=== PATIENT | female | born 2000 | race Caucasian/White ===

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

== ENCOUNTER 2022-07-21 18:29 | Emergency (ER) | payer MEDICAID ==
[~2022-07-21] VITALS: Ht 157.5 cm; Wt 71.8 kg
[~2022-07-21 18:29] MED LIST changes: -FAMO40TA73 PO; -ONDA4TAB12 PO; -PHEN-716 PO; +TRAZ-251 PO; +VENL75TA90 PO
[2022-07-21 21:31] LABS: BASOPHILS # (AUTO) 0.1 X10'3 (0-0.2); BASOPHILS % (AUTO) 0.7 % (0-1); EOSINOPHILS % (AUTO) 0.5 % (0-6); HEMATOCRIT 39.5 % (35.0-45.0); HEMOGLOBIN 13.2 g/dl (12.0-16.0); LYMPHOCYTES # (AUTO) 2.4 X10'3 (1.1-4.8); LYMPHOCYTES % (AUTO) 29.2 % (21-51); MEAN CORPUSCULAR HEMOGLOBIN 26.7 PG (27.0-31.0); MEAN CORPUSCULAR HGB CONC 33.3 g/dL (33.0-36.5); MONOCYTES # (AUTO) 0.5 X10'3 (0-0.9); MONOCYTES % (AUTO) 6.3 % (2-12); NEUTROPHILS # (AUTO) 5.3 X10'3 (1.8-7.7); NEUTROPHILS % (AUTO) 63.3 % (42-75); PLATELET COUNT 349 X10'3 (140-440); RED BLOOD COUNT 4.93 X10'6 (4.20-5.60); RED CELL DISTRIBUTION WIDTH 15.5 % (11.5-14.5); WHITE BLOOD COUNT 8.3 X10'3 (4.5-11.0)
[2022-07-21 21:42] LABS: ALANINE AMINOTRANSFERASE 34 U/L (12-78); ALBUMIN 4.1 G/DL (3.4-5.0); ALKALINE PHOSPHATASE 86 IU/L (20-180); ANION GAP 10 (8-16); ASPARTATE AMINO TRANSFERASE 28 U/L (10-37); BILIRUBIN,TOTAL 0.2 MG/DL (0.1-1.0); BLOOD UREA NITROGEN 9 MG/DL (7-18); BUN/CREATININE RATIO 12.7 (6.6-38.0); CALCIUM 9.2 MG/DL (8.5-10.1); CHLORIDE 104 MMOL/L (99-107); CREATININE 0.71 MG/DL (0.40-0.90); GLUCOSE 83 MG/DL (70-104); POTASSIUM 3.7 MMOL/L (3.5-5.1); SODIUM 139 MMOL/L (135-145); TOTAL PROTEIN 8.2 G/DL (6.4-8.2); eGFR > 90 ML/MIN
[2022-07-21 21:55] LABS: ACETAMINOPHEN < 2.0 UG/ML (10-30); ETHANOL < 0.010 GM/DL (0.0-0.010)
--- NOTE | 2022-07-21 22:00 | NUR ---
POISON CONTROLWAS CALLED BY THIS RECORDER . LABS WERE DRAWN ADVISED BY CONTROL AND VALUES WERE REPORTED . POISON CONTROL ADVISES TO REPEAT LAB DRAW AT 2300 CHEM PANEL , ACETAMENTSANDRA , AND S
[2022-07-21 22:01] LABS: URINE HCG NEGATIVE (NEG)
[2022-07-21 22:18] LABS: URINE AMPHETAMINE SCREEN NEGATIVE (Neg); URINE BARBITUATE SCREEN NEGATIVE (Neg); URINE BENZODIAZEPINES SCREEN NEGATIVE (Neg); URINE CANNABINOID SCREEN NEGATIVE (Neg); URINE COCAINE SCREEN NEGATIVE (Neg); URINE METHADONE SCREEN NEGATIVE (Neg); URINE OPIATE SCREEN NEGATIVE (Neg); URINE PHENCYCLIDINE SCREEN NEGATIVE (Neg)
--- NOTE | 2022-07-21 22:25 | NUR ---
LABS RECCOMENDED BY POISON CONTROL TO REPEAT AT 2300 - SALICYLATES CHEM PANEL AND ACETAMINOPHEN .
[2022-07-21 23:36] LABS: ALANINE AMINOTRANSFERASE 36 U/L (12-78); ALBUMIN 4.2 G/DL (3.4-5.0); ALBUMIN/GLOBULIN RATIO 1.1 (1.1-1.5); ALKALINE PHOSPHATASE 90 IU/L (20-180); ANION GAP 9 (8-16); ASPARTATE AMINO TRANSFERASE 31 U/L (10-37); BILIRUBIN,TOTAL 0.2 MG/DL (0.1-1.0); BLOOD UREA NITROGEN 8 MG/DL (7-18); BUN/CREATININE RATIO 10.5 (6.6-38.0); CALCIUM 8.8 MG/DL (8.5-10.1); CHLORIDE 102 MMOL/L (99-107); CREATININE 0.76 MG/DL (0.40-0.90); GLUCOSE 96 MG/DL (70-104); SODIUM 137 MMOL/L (135-145); TOTAL CARBON DIOXIDE 26.5 MMOL/L (24-32); TOTAL PROTEIN 8.1 G/DL (6.4-8.2); eGFR > 90 ML/MIN
[2022-07-21 23:38] LABS: POTASSIUM 3.7 MMOL/L (3.5-5.1)
[2022-07-21 23:46] LABS: ACETAMINOPHEN < 2.0 UG/ML (10-30)
[2022-07-22 05:53] VITALS: BP 115/65
--- NOTE | 2022-07-22 06:15 | NUR ---
Pt moved from ER main pepe bed 12 to ER overflow bed 21.
[2022-07-22] MEDS ORDERED: QUET-1 PO (07:31)
[2022-07-22] MEDS ORDERED: CITA-311 PO (07:31)
[2022-07-22 08:17] LABS: CLARITY,URINE CLEAR (Clear); COLOR,URINE YELLOW (Yellow); GLUCOSE, URINE NEGATIVE (Neg); KETONES,URINE NEGATIVE (Neg); LEUKOCYTE ESTERASE ,URINE NEGATIVE (Neg); NITRITES, URINE NEGATIVE (Neg); OCCULT BLOOD,URINE NEGATIVE (Neg); PH,URINE 8.5 (4.8-8.0); PROTEIN,URINE NEGATIVE (Neg); UROBILINOGEN,URINE 0.2 E.U/dL (0.2-1.0)
[2022-07-22 08:20] LABS: UA COLLECTION TYPE CLN CATCH MIDSTREAM
[2022-07-22] MEDS ORDERED: CITALOpram 10mg tablet PO SCH (08:26)
--- NOTE | 2022-07-22 09:15 | NUR ---
Pt is eating breakfast. Pt continues to endorse depression and SI, pt has no plan, pt contracts for safety. Pt denies HI/AH/VH.
--- NOTE | 2022-07-22 09:22 | NUR ---
Packet faxed earlier. Pt is being evaluated by Demetris from [facility].
--- NOTE | 2022-07-22 10:10 | NUR ---
Pt approached this nurse to ask for something for her stomach. Pt reports "really bad" stomach pain and states that "it feels like it's going to come out both ends." Addendum: 07/22/22 at 1024 by CEDRIC Pt reports one episode of diarrhea.
[2022-07-22] MEDS ORDERED: dicyclomine 10 MG capsule PO ONE (10:30)
[2022-07-22] MEDS ORDERED: ondansetron 4mg rapidly disintigrating tab PO ONE (10:30)
--- NOTE | 2022-07-22 10:40 | NUR ---
Obtained orders for Bentyl 20 mg once and Zofran ODT 8 mg once.
--- NOTE | 2022-07-22 10:41 | NUR ---
Valeriy Mata at 1041.
--- NOTE | 2022-07-22 11:46 | NUR ---
Pt reported to this RN that she no longer wishes to go to a [facility] hospital. Notified Demetris from [facility] and he is speaking to the patient.
--- NOTE | 2022-07-22 12:18 | NUR ---
Pavan Sol called to inquire about the patient.
--- NOTE | 2022-07-22 13:10 | NUR ---
Pt is on the phone with her grandma.
--- NOTE | 2022-07-22 13:13 | NUR ---
Claudette from [facility] called to report that pt has been accepted at [facility], pickler helper time will be 1415.
--- NOTE | 2022-07-22 13:59 | NUR ---
Pt is reading a book.
--- NOTE | 2022-07-22 14:23 | NUR ---
Pt discharged to [facility], [place], ambulated off the unit accompanied by security and county warehouse delivery driver, pocket knives will be retrieved from security safe on the way out.
[2022-07-22] MEDS ORDERED: quetiapine 100mg tablet PO SCH (20:00)
[2022-07-22] MEDS ORDERED: traZODone 50mg tablet PO SCH (21:00)
== END 2022-07-22 14:23 ==
LOC: ER 18:31
DX: R45.851 Suicidal ideations (principal); Z20.822 Contact with and (suspected) exposure to COVID-19; F41.9 Anxiety disorder, unspecified; F20.9 Schizophrenia, unspecified; Z91.010 Allergy to peanuts; Z79.899 Other long term (current) drug therapy
CPT/HCPCS: 36415; 80053; 80305; 80320; 80329; 81003; 81025; 84443; 85025; 87811; 99285

== ENCOUNTER 2022-09-30 15:57 | Emergency (ER) | payer MEDICAID ==
[~2022-09-30] VITALS: Ht 157.5 cm; Wt 68.0 kg
[~2022-09-30 15:57] MED LIST changes: +CITA-311 PO; +QUET-1 PO; -VENL75TA90 PO
[2022-09-30 16:00] VITALS: BP 160/94
[2022-09-30] MEDS ORDERED: QUET-1 PO (17:10)
== END 2022-09-30 17:22 | disposition home or self-care (01) ==
LOC: ER 15:58
DX: F31.9 Bipolar disorder, unspecified (principal); Z76.0 Encounter for issue of repeat prescription; F20.9 Schizophrenia, unspecified; Z91.018 Allergy to other foods; Z79.899 Other long term (current) drug therapy; Z91.010 Allergy to peanuts
CPT/HCPCS: 99281

== ENCOUNTER 2022-10-28 14:58 | Emergency (ER) | payer MEDICAID ==
[~2022-10-28] VITALS: Ht 157.5 cm; Wt 68.2 kg
--- NOTE | 2022-10-28 15:05 | NUR ---
CALL TO POISON CONTROL AT THIS TIME. PER PHARMACIST LOOK FOR DROWSYNESS, DIZZINESS, HYPOTENSION, QTC PROLONGATION AND SZ. OBSERVATION FOR 4-6 HRS FROM TIME OF ARRIVAL. EKG NOW AND REPEAT IN 4HRS, IF QTC >500 THEN GIVE 2G MAGNESIUM IV, MAXIMIZE CA, K, MG. GIVE BENZODIAZEPINE FOR AGITATION/SZ, CHECK ALCOHOL, TYLENOL, ASPIRIN, CMP, HCG, UDS.
[2022-10-28 16:10] LABS: BASOPHILS % (AUTO) 0.3 % (0-1); EOSINOPHILS % (AUTO) 0.3 % (0-6); HEMATOCRIT 45.3 % (35.0-45.0); HEMOGLOBIN 14.5 g/dl (12.0-16.0); LYMPHOCYTES # (AUTO) 1.7 X10'3 (1.1-4.8); LYMPHOCYTES % (AUTO) 21.7 % (21-51); MEAN CORPUSCULAR HEMOGLOBIN 26.1 PG (27.0-31.0); MEAN CORPUSCULAR HGB CONC 31.9 g/dL (33.0-36.5); MEAN CORPUSCULAR VOLUME 81.6 FL (78-98); MEAN PLATELET VOLUME 7.5 FL (7.4-10.4); MONOCYTES # (AUTO) 0.6 X10'3 (0-0.9); MONOCYTES % (AUTO) 7.8 % (2-12); NEUTROPHILS # (AUTO) 5.5 X10'3 (1.8-7.7); NEUTROPHILS % (AUTO) 69.9 % (42-75); PLATELET COUNT 292 X10'3 (140-440); RED BLOOD COUNT 5.55 X10'6 (4.20-5.60); WHITE BLOOD COUNT 7.8 X10'3 (4.5-11.0)
[2022-10-28 16:22] LABS: ALANINE AMINOTRANSFERASE 20 U/L (12-78); ALBUMIN 4.6 G/DL (3.4-5.0); ALBUMIN/GLOBULIN RATIO 1.1 (1.1-1.5); ALKALINE PHOSPHATASE 89 IU/L (20-180); ANION GAP 11 (8-16); ASPARTATE AMINO TRANSFERASE 21 U/L (10-37); BILIRUBIN,TOTAL 0.3 MG/DL (0.1-1.0); BLOOD UREA NITROGEN 8 MG/DL (7-18); BUN/CREATININE RATIO 11.1 (6.6-38.0); CALCIUM 9.9 MG/DL (8.5-10.1); CHLORIDE 100 MMOL/L (99-107); CREATININE 0.72 MG/DL (0.40-0.90); GLUCOSE 98 MG/DL (70-104); SODIUM 135 MMOL/L (135-145); TOTAL CARBON DIOXIDE 23.7 MMOL/L (24-32); TOTAL PROTEIN 8.7 G/DL (6.4-8.2); eGFR > 90 ML/MIN
[2022-10-28 16:33] LABS: ETHANOL < 0.010 GM/DL (0.0-0.010)
[2022-10-28 16:52] LABS: POTASSIUM 3.9 MMOL/L (3.5-5.1)
[2022-10-28 16:53] LABS: ACETAMINOPHEN < 2.0 UG/ML (10-30)
[2022-10-28] MEDS ORDERED: normal saline 1000ml 1,000 ML IV ONE ×2 (17:30→21:15)
[2022-10-28] MEDS ORDERED: ondansetron/PF 4mg/2ml inj IV ONE (17:31)
[2022-10-28 19:05] LABS: CLARITY,URINE SLIGHTLY CLOUDY (Clear); COLOR,URINE YELLOW (Yellow); GLUCOSE, URINE NEGATIVE (Neg); KETONES,URINE TRACE mg/dl (Neg); LEUKOCYTE ESTERASE ,URINE NEGATIVE (Neg); NITRITES, URINE NEGATIVE (Neg); OCCULT BLOOD,URINE NEGATIVE (Neg); PH,URINE 8.5 (4.8-8.0); PROTEIN,URINE NEGATIVE (Neg); UROBILINOGEN,URINE 0.2 E.U/dL (0.2-1.0)
[2022-10-28 19:07] LABS: URINE HCG NEGATIVE (NEG)
[2022-10-28 19:15] LABS: URINE AMPHETAMINE SCREEN NEGATIVE (Neg); URINE BARBITUATE SCREEN NEGATIVE (Neg); URINE BENZODIAZEPINES SCREEN NEGATIVE (Neg); URINE CANNABINOID SCREEN POSITIVE (Neg); URINE COCAINE SCREEN NEGATIVE (Neg); URINE METHADONE SCREEN NEGATIVE (Neg); URINE OPIATE SCREEN NEGATIVE (Neg); URINE PHENCYCLIDINE SCREEN NEGATIVE (Neg)
[2022-10-28 19:16] LABS: UA COLLECTION TYPE CLN CATCH MIDSTREAM
[2022-10-28 19:17] LABS: MUCUS STRANDS FEW /LPF (Neg); SQUAMOUS EPITHELIAL CELL,UR MANY /LPF (FEW)
[2022-10-28 19:18] LABS: BACTERIA,URINE 1+ /HPF (Neg); TRANSITIONAL EPI CELLS,URINE FEW /HPF
--- NOTE | 2022-10-28 20:49 | NUR ---
per Poison control recomendations, new EKG obtained at this time and QTc is 471- still WNL. is aware.
[2022-10-29 03:46] VITALS: BP 116/52
--- NOTE | 2022-10-29 06:50 | NUR ---
ASSUMED PT CARE. PT RESTING, EYES CLOSED, BED LOCKED AND LOW, IN LINE OF SIGHT.
--- NOTE | 2022-10-29 07:33 | NUR ---
Patient ambulated to Overflow bed 25, accompanied by MELANI Dacosta
--- NOTE | 2022-10-29 11:35 | NUR ---
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
--- NOTE | 2022-10-29 11:52 | NUR ---
Patient is using the restroom. No s/sx of distress.
--- NOTE | 2022-10-29 13:33 | NUR ---
Patient waiting for a ride, then she will be discharged.
--- NOTE | 2022-10-29 14:23 | NUR ---
Patient discharging home with her grandfather.
== END 2022-10-29 14:26 ==
LOC: ER 14:58
DX: T43.212A Poisoning by selective serotonin and norepinephrine reuptake inhibitors, intentional self-harm, initial encounter (principal); Z20.822 Contact with and (suspected) exposure to COVID-19; R45.851 Suicidal ideations; R42 Dizziness and giddiness; F31.9 Bipolar disorder, unspecified; F20.9 Schizophrenia, unspecified; F17.200 Nicotine dependence, unspecified, uncomplicated; Z72.89 Other problems related to lifestyle; Z91.018 Allergy to other foods; Z79.899 Other long term (current) drug therapy; Y92.89 Other specified places as the place of occurrence of the external cause
CPT/HCPCS: 36415; 80053; 80305; 80320; 80329; 81001; 81025; 83735; 84443; 85025; 87811; 93005; 96361; 96374; 99285; J2405; J7030

== ENCOUNTER 2023-04-09 20:03 | Emergency (ER) | payer MEDICAID ==
[~2023-04-09] VITALS: Ht 157.5 cm; Wt 72.7 kg
[2023-04-09] MEDS ORDERED: charcoal, activated 50 GM/240 ML bottle PO ONE (20:20)
[2023-04-09] MEDS ORDERED: DOXE10CA3 PO (20:43)
[2023-04-09] MEDS ORDERED: PROP10TA10 PO (20:43)
[2023-04-09] MEDS ORDERED: QUET100T34 PO (20:43)
[2023-04-09] MEDS ORDERED: LURA120T PO (20:43)
[2023-04-09 20:56] LABS: CLARITY,URINE SLIGHTLY CLOUDY (Clear); COLOR,URINE YELLOW (Yellow); GLUCOSE, URINE NEGATIVE (Neg); KETONES,URINE NEGATIVE (Neg); LEUKOCYTE ESTERASE ,URINE NEGATIVE (Neg); NITRITES, URINE NEGATIVE (Neg); OCCULT BLOOD,URINE NEGATIVE (Neg); PH,URINE 8.5 (4.8-8.0); PROTEIN,URINE TRACE mg/dl (Neg); UROBILINOGEN,URINE 0.2 E.U/dL (0.2-1.0)
[2023-04-09 21:07] LABS: BASOPHILS # (AUTO) 0.1 X10'3 (0-0.2); BASOPHILS % (AUTO) 0.6 % (0-1); EOSINOPHILS % (AUTO) 0.4 % (0-6); HEMATOCRIT 39.3 % (35.0-45.0); HEMOGLOBIN 13.3 g/dl (12.0-16.0); MEAN CORPUSCULAR HEMOGLOBIN 28.1 PG (27.0-31.0); MEAN CORPUSCULAR HGB CONC 33.7 g/dL (33.0-36.5); MEAN CORPUSCULAR VOLUME 83.5 FL (78-98); MEAN PLATELET VOLUME 7.2 FL (7.4-10.4); MONOCYTES # (AUTO) 0.5 X10'3 (0-0.9); MONOCYTES % (AUTO) 5.5 % (2-12); NEUTROPHILS # (AUTO) 6.3 X10'3 (1.8-7.7); NEUTROPHILS % (AUTO) 71.5 % (42-75); PLATELET COUNT 321 X10'3 (140-440); RED BLOOD COUNT 4.71 X10'6 (4.20-5.60); RED CELL DISTRIBUTION WIDTH 14.1 % (11.5-14.5); WHITE BLOOD COUNT 8.9 X10'3 (4.5-11.0)
[2023-04-09 21:11] LABS: UA COLLECTION TYPE CLN CATCH MIDSTREAM
[2023-04-09 21:15] LABS: BACTERIA,URINE 2+ /HPF (Neg); CAL OXALATE CRYSTALS 1+ /HPF (NEGATIVE); MUCUS STRANDS FEW /LPF (Neg); SQUAMOUS EPITHELIAL CELL,UR MODERATE /LPF (FEW)
[2023-04-09 21:25] LABS: URINE AMPHETAMINE SCREEN NEGATIVE (Neg); URINE BARBITUATE SCREEN NEGATIVE (Neg); URINE BENZODIAZEPINES SCREEN NEGATIVE (Neg); URINE CANNABINOID SCREEN NEGATIVE (Neg); URINE COCAINE SCREEN NEGATIVE (Neg); URINE METHADONE SCREEN NEGATIVE (Neg); URINE OPIATE SCREEN NEGATIVE (Neg); URINE PHENCYCLIDINE SCREEN NEGATIVE (Neg)
[2023-04-09 21:33] LABS: ALANINE AMINOTRANSFERASE 49 U/L (12-78); ALBUMIN/GLOBULIN RATIO 1.1 (1.1-1.5); ALKALINE PHOSPHATASE 84 IU/L (20-180); ANION GAP 14 (8-16); ASPARTATE AMINO TRANSFERASE 31 U/L (10-37); BILIRUBIN,TOTAL 0.3 MG/DL (0.1-1.0); BLOOD UREA NITROGEN 5 MG/DL (7-18); BUN/CREATININE RATIO 5.8 (10.0-20.0); CALCIUM 9.2 MG/DL (8.5-10.1); CHLORIDE 105 MMOL/L (99-107); CREATININE 0.86 MG/DL (0.40-0.90); ETHANOL < 0.010 GM/DL (0.0-0.010); GLUCOSE 121 MG/DL (70-104); POTASSIUM 3.2 MMOL/L (3.5-5.1); SODIUM 141 MMOL/L (135-145); TOTAL CARBON DIOXIDE 22.4 MMOL/L (24-32); TOTAL PROTEIN 7.7 G/DL (6.4-8.2); eGFR 84 ML/MIN
[2023-04-09 21:41] LABS: ACETAMINOPHEN < 2.0 UG/ML (10-30)
--- NOTE | 2023-04-09 22:34 | NUR ---
pt belongings stored in overflow. pt on gambling monitor per dr joy request. all other cords removed and room stripped for mh hold. pt changed into green scrubs and moved from rm 4 to rm 7.
--- NOTE | 2023-04-10 01:45 | NUR ---
pt alert and oriented x4, easy to awaken with voice. pt resting on left side on gurney, acting appropriately.
--- NOTE | 2023-04-10 02:31 | NUR ---
Received report from Jyotsna CORONADO. Patient will transfer to bed 20 following a negative Covid 19 result. Jyotsna will speak with Dr. Garza about probable UTI for antibotic Rx.
[2023-04-10] MEDS ORDERED: POTASSIUM BICARB 20meq eff tab 20 MEQ TABLET.EFF PO ONE (02:40)
--- NOTE | 2023-04-10 03:33 | NUR ---
Patient brought to bed 20 and placed in bed. The patient tells this mortgage underwriter that she is not S/I or H/I. She denies hallucinations. Patient has superficial lacerations on her left anterior forarm. Patient cut self with a knife at home prior to poly overdose on pills. A saline lock was in patients posterior right hand. It was discontinued by this mortgage underwriter, the catheter intact. The patient was given warm blankets and she returned to sleep.
--- NOTE | 2023-04-10 03:50 | NUR ---
Packet sent to [facility] office.
--- NOTE | 2023-04-10 05:08 | NUR ---
Patients belongings, rings, etc were secured in safe by admitting. At patients request cell phone was kept in locker storage so patient could access it as needed for phone numbers.
--- NOTE | 2023-04-10 05:12 | NUR ---
Patient is awake for vital signs. No distress.
[2023-04-10] MEDS ORDERED: Melatonin 3mg tablet PO ONE (05:40)
[2023-04-10] MEDS ORDERED: diphenhydrAMINE 25mg capsule PO ONE (05:40)
--- NOTE | 2023-04-10 06:01 | NUR ---
This patient has been unable to sleep. This internal communications writer consulted with Doctor Valentino. PO Benadrel and Melatonin given. Patient complies with taking medication.
--- NOTE | 2023-04-10 07:11 | NUR ---
Pt woke when jingle writer was at bedside, sleepy, but easily roused.
--- NOTE | 2023-04-10 09:30 | NUR ---
One to one with patient to assess suicidal thoughts. Pt was awake watching T.V. Pt pleasant, but guarded in conversation. Pt currently denies SI/HI, A/VH. Pt states that at the time of ingestion "I wanted to feel better and get some sleep." Pt reports not being able to sleep or waking up and not being able to fall back to sleep. Pt denies that she wants to . 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 Pt reports "it sometime feels good." Pt doesn't elaborate more then that. Pt has a hisotory of bipolar, depression. Reports [facility] placements x3. Pt lives with her grandparents and sister in [place]. Reports she lost her mother about four years ago. Pt had SA in 10/28/22 OD with trazadone. Addendum: 04/10/23 at 1309 by YAYO Per [facility] Progress Note: Per grandmother pt's mother last year. Pt was the only one present and had to call EMS for assistance. Pt's father has been out of her life for some time.
--- NOTE | 2023-04-10 09:49 | NUR ---
Received phone call from Randy at [facility] Control - pt is released and case closed.
--- NOTE | 2023-04-10 11:40 | NUR ---
[facility] clinician at bedside. Conversation appropriate.
--- NOTE | 2023-04-10 12:05 | NUR ---
Pt being placed on a hold. [facility] clinician at bedside. Pt is tearful agitated saying "I'm not going." "Please just let me go home." "I promise I won't be back." "I'm not going to be placed on a hold." Clinician reenforced yes she is going to be place on a hold because family can not safety plan. After clinician left bedside pt ran hands across tray table knocking everything Addendum: 04/10/23 at 1254 by YAYO knocking everything off. [facility] Orth[facility]ist explained that it's that behavior that reinforces the 5150. Pt reported to [facility] she was "alone all day" yesterday when it was only for an hour. Pt reports when "she is alone the voices in her head get loud and she lacks impulse control." Pt told field underwriter "I lied about taking the medication." "But then said she took some pills." [facility] Orthodontist asked why would she lie about something so serious "It doesn't matter, I'm not going to go home."
--- NOTE | 2023-04-10 12:20 | NUR ---
Pt calmed and was given her lunch tray. T.V was taken away. Pt reassured telegraphic typewriter operator chief that her behavior will remain calm. No PRN's required will continue to monitor.
--- NOTE | 2023-04-10 13:07 | NUR ---
Pt lying on left side with blankets pulled up to her neck. Visible respirations seen, even and unlabored.
[2023-04-10] MEDS ORDERED: FOSFOMYCIN TROMETHAMINE 3 GM PACKET PO ONE (13:15)
[2023-04-10] MEDS ORDERED: hydrOXYzine 25 MG tablet PO ONE (14:25)
--- NOTE | 2023-04-10 14:25 | NUR ---
NURSE TO NURSE WITH PARESH AT [facility], TORRES MARTINE[facility]. PENDING HCG RESULT. ADDED LAB ON.
--- NOTE | 2023-04-10 14:31 | NUR ---
Pt came to nurses station requesting something for "anxiety." "My heart is racing." Received order for Atarax 25mg MR dose if ineffective. Received order for Fosfomycin for UTI.
[2023-04-10 15:00] LABS: URINE HCG NEGATIVE (NEG)
--- NOTE | 2023-04-10 15:08 | NUR ---
FAXED HCG results to [facility]. Rina notified.
--- NOTE | 2023-04-10 15:17 | NUR ---
ETA FOR MECHANICAL ASSEMBLY TECHNICIAN PARMJIT AT 1930. WILL ENDORSE TO NEXT SHIFT.
--- NOTE | 2023-04-10 15:18 | NUR ---
Pt resting comfortably on left side, rr even and unlabored.
--- NOTE | 2023-04-10 15:18 | NUR ---
Pt aware of transfer and compliant with situation.
--- NOTE | 2023-04-10 16:38 | NUR ---
Pt asked for something to do, given word puzzles and coloring pages.
[2023-04-10] MEDS ORDERED: lurasidone 60mg tablet PO SCH (17:30)
--- NOTE | 2023-04-10 17:55 | NUR ---
Pt lying in bed awake.
--- NOTE | 2023-04-10 19:00 | NUR ---
The patient is resting on her bed.
[2023-04-10 19:44] VITALS: BP 140/84
[2023-04-10] MEDS ORDERED: quetiapine 100mg tablet PO SCH (21:00)
[2023-04-10] MEDS ORDERED: doxepin 10mg capsule PO SCH (21:00)
== END 2023-04-10 19:48 | disposition still patient (30) ==
LOC: ER 20:03
DX: T43.592A Poisoning by other antipsychotics and neuroleptics, intentional self-harm, initial encounter (principal); Z20.822 Contact with and (suspected) exposure to COVID-19; G47.00 Insomnia, unspecified; F31.9 Bipolar disorder, unspecified; Z91.018 Allergy to other foods; Y92.89 Other specified places as the place of occurrence of the external cause
CPT/HCPCS: 36415; 71045; 80053; 80305; 80320; 80329; 81001; 81025; 84443; 85025; 87088; 87811; 93005; 99285; Q0163; Q0177